=== PATIENT | female | born 1990 | race Caucasian/White ===

== ENCOUNTER 2019-08-31 08:27 | Outpatient (RCR) | payer BC, SELFPAY ==
[2019-08-05 18:34] VITALS: BP 129/82; PULSE 101
[2019-08-12 17:20] VITALS: BP 128/71; PULSE 89
[2019-08-20 15:01] VITALS: BP 140/77; PULSE 92
[2019-08-24 17:05] VITALS: BP 140/80; PULSE 81
[2019-08-27 15:04] VITALS: BP 135/83; PULSE 89
[2019-08-29 15:30] VITALS: BP 133/84; PULSE 78
--- NOTE | ~2019-08-31 | US_ITS ---
EXAMINATION: US OB limited w BPP DATE: 08/29/2019 15:06 CDT INDICATION: decelerations. TECHNIQUE: Real-time transabdominal obstetric ultrasound. FINDINGS: No prior studies for comparison. There is a single living fetus in breech presentation. The placenta is anterior without placenta pre via. cardiac activity and movement is noted with a heart rate of 147 beats per minute. A FI is normal measuring 12.8 cm. Biophysical profile: breathin of 2 movement: 2 of 2 tone: 2 of 2 Amniotic flud pocket: 2 of 2 Total score: 8 of 8 IMPRESSION: 1. Single living intrauterine in breech presentation. 2: Total biophysical profile score of 8/8. 3: Normal JOSÉ measures 12.8 cm. Reviewed, dictated and finalized at location A.
[2019-08-31 10:04] LABS: Basophils Absolute Auto 0.1 K/mm3 (0.0-0.1); Basophils Percent Auto 0.4 % (0.2-1.2); Eosinophils Absolute Auto 0.1 K/mm3 (0-0.3); Eosinophils Percent Auto 0.9 % (0-4.4); Hematocrit 35.6 % (37.0-47.0); Hemoglobin 11.6 g/dL (12.0-15.0); Immature Granulocyte Absolute 0.11 K/mm3 (0.00-0.031); Immature Granulocyte Percent A 0.9 % (0-0.5); Lymphocytes Absolute Auto 2.57 K/mm3 (0.9-3.2); Lymphocytes Percent Auto 21.2 % (18.3-44.2); Mean Corpuscular HGB Conc 32.6 g/dl (32-36); Mean Corpuscular Hemoglobin 27.7 pg (26-34); Mean Platelet Volume 10.9 fl (7.4-10.4); Monocytes Absolute Auto 0.7 K/mm3 (0.1-0.6); Monocytes Percent Auto 5.9 % (2.6-8.5); Neutrophils Absolute Auto 8.6 K/mm3 (1.3-6.7); Neutrophils Percent Auto 70.7 % (45.5-73.1); Platelet Count Result 275 k/mm3 (150-375); Red Blood Count 4.19 M/mm3 (4.2-5.4); Red Cell Distribution Width 14.2 % (11.5-14.5); White Blood Count 12.2 K/mm3 (4.5-10.0)
[2019-08-31 10:08] LABS: Add Urine Microscopic? YES; Appearance Urine Cloudy (Clear); Bacteria Urine Trace /hpf; Bilirubin Urine Negative (Negative); Blood Urine Negative (Negative); Color Urine Yellow (Yellow); Glucose Urine UA Negative (Negative); Ketones Urine Negative (Negative); Leukocyte Esterase Ur Negative LEU/UL (NEGATIVE); Mucus Urine Few /lpf; Nitrate Urine Negative (Negative); Protein Urine 1+ mg/dL (Negative); RBC Urine 0-2 /hpf (0-2); Specific Grav Ur 1.015 (1.001-1.035); Squamous Epithelial Cell Urine Many /hpf (Few); Transitional Epi Cells Urine Rare /hpf (None Seen); Urobilinogen Urine Negative mg/dL (<2.0)
[2019-08-31 10:15] LABS: Alanine Aminotransferase 13 U/L (4-35); Albumin Level 3.5 g/dL (3.5-5.1); Alkaline Phosphatase 134 U/L (38-126); Aspartate Amino Transferase 23 U/L (14-36); Bilirubin,Total 0.2 mg/dL (0.2-1.3); Blood Urea Nitrogen 3 mg/dL (7-17); Calcium 8.7 mg/dL (8.4-10.2); Carbon Dioxide 27 mmol/L (22-30); Chloride 106 mmol/L (98-107); Estimated Glomerular Filt Rate > 60; Glucose 84 mg/dL (65-105); Potassium 3.1 mmol/L (3.4-5.0); Sodium 137 mmol/L (137-145); Uric Acid 4.8 mg/dL (2.5-7.5)
[2019-08-31 10:33] LABS: Creatinine Urine 161.4 mg/dL; Total Protein Urine Random 14 mg/dL
[2019-08-31 11:23] VITALS: BP 152/86; PULSE 89
--- NOTE | 2019-08-31 11:27 | PC.NURSE ---
1117- called with lab results and to inform NST is reactive with no variables since I last spoke with her. Orders received to discharge pt home with 24 hr urine collection
--- NOTE | 2019-08-31 11:28 | PC.NURSE ---
0932- called with bp's and informed pt came in for decreased movement and has had a couple questionable variables. Order received to draw [facility] labs and montior for a couple hours.
== END 2019-09-06 07:58 | disposition home or self-care (01) ==
LOC: ANHOBOP 08:27
PROVIDERS: Visit Provider Obstetrics & Gynecology
DX: O24.419 Gestational diabetes mellitus in pregnancy, unspecified control (principal); Z3A.33 33 weeks gestation of pregnancy; Z3A.34 34 weeks gestation of pregnancy; Z3A.35 35 weeks gestation of pregnancy; O36.8130 Decreased fetal movements, third trimester, not applicable or unspecified; Z3A.36 36 weeks gestation of pregnancy
CPT/HCPCS: 36415; 59025; 76815; 76819; 80053; 81001; 82570; 84156; 84550; 85025; 87086

== ENCOUNTER 2019-09-02 16:01 | Inpatient (IN) | payer BC, SELFPAY ==
[2019-09-02] VITALS (13 sets, daily range): BP systolic 94–126; BP diastolic 62–79; PULSE 67–92; TEMP 36.3–36.6; BMI 41.1
--- NOTE | 2019-09-02 17:09 | WPDOBADMIT ---
Obstetrics - Admit Note Admission Note: Admitted for iol for Pre Eclampsia cevix closed and thick vertex by ultrasound in office 09/02/19. plan cervidil then high dose pitocin. record reviewed. No pertinent additions to the history and/or any subsequent changes in the physical findings that are not consistent with the expected course of the were found. Additions to the history and/or subsequent changes in the physical findings follow. None.
[2019-09-02 18:07] LABS: Basophils Absolute Auto 0.1 K/mm3 (0.0-0.1); Basophils Percent Auto 0.4 % (0.2-1.2); Eosinophils Absolute Auto 0.1 K/mm3 (0-0.3); Eosinophils Percent Auto 0.5 % (0-4.4); Hematocrit 33.3 % (37.0-47.0); Immature Granulocyte Percent A 0.7 % (0-0.5); Lymphocytes Absolute Auto 2.54 K/mm3 (0.9-3.2); Lymphocytes Percent Auto 18.1 % (18.3-44.2); Mean Corpuscular Hemoglobin 27.7 pg (26-34); Mean Corpuscular Volume 83.9 fl (80-100); Mean Platelet Volume 12.1 fl (7.4-10.4); Monocytes Absolute Auto 0.7 K/mm3 (0.1-0.6); Monocytes Percent Auto 5.3 % (2.6-8.5); Neutrophils Absolute Auto 10.5 K/mm3 (1.3-6.7); Platelet Count Result 259 k/mm3 (150-375); Red Blood Count 3.97 M/mm3 (4.2-5.4)
--- NOTE | 2019-09-02 18:38 | LDADM ---
This patient, Digna Velasco, was admitted to Labor/Delivery/Recovery 108 on 09/02/19 at 16:01. Plans for labor, pain management and were discussed with patient. Patient/family oriented to hospital policies and general routines including ID bracelet, bed and alarms, visiting hours, pain management, procedures, bathroom and other care routines, personal items, smoking policy, room service/diet and guest tray routines, infant security routines, and visiting hours. Patient/Family are encouraged to report perceived risks to care and to ask questions if they do not understand what they are told or what they should do. See OBIX for further documentation.
[2019-09-02] MEDS: DINOPROSTONE 10 MG VAG INSERT VAGINAL (18:50)
[2019-09-02 19:49] LABS: Glucose Point of Care 83 (65-105)
[2019-09-02 21:35] LABS: Amphetamine Screen Urine Negative (Negative); Barbiturate Screen Urine Negative (Negative); Benzodiazepines Screen Urine Negative (Negative); Cannabinoid Screen Urine Positive (Negative); Cocaine Screen Urine Negative (Negative); Methadone Screen Urine Negative (Negative); Opiate Screen Urine Negative (Negative); Phencyclidine Screen Urine Negative (Negative)
--- NOTE | 2019-09-02 22:44 | PM.OBPRVD ---
OB - Delivery Note Procedure Delivery date: 09/02/19 events: Labor Augmentation Delivery augmentation: rupture of membranes and pitocin Delivery monitor: external FHT, external uterine and internal uterine Route of delivery: Episiotomy description: Right Mediolateral Laceration description: Perineal - 2nd Degree Delivery repair: vicryl Specimen: Yes Estimated blood loss (mL): 220 Anesthesia type: Epidural Disposition: floor Baby Date of : 09/02/19 Time of : 22:12 Weeks of gestation at delivery: 39 Infant gender: Male Weight (pounds): 9 Weight (ounces): 2 presentation: vertex position: Left Occiput Anterior Placenta delivery description: Spontaneous cord vessel description: 3 Vessels score one minute: 8 score five minutes: 9
[2019-09-02] MEDS: INSULIN HUMAN NPH (*BKC) 100 UNITS/ML 50 UNITS SUB-Q (22:58)
[2019-09-02 23:41] LABS: Glucose Point of Care 86 (65-105)
[2019-09-03] VITALS (85 sets, daily range): BP systolic 85–169; BP diastolic 50–151; PULSE 59–133; TEMP 36.3–37.3; O2SAT 95–100
[2019-09-03 03:55] LABS: Glucose Point of Care 58 (65-105)
[2019-09-03 04:14] LABS: Glucose Point of Care 81 (65-105)
[2019-09-03 06:57] LABS: Rapid Plasma Reagin Non-Reactive (NonReactive)
--- NOTE | 2019-09-03 08:00 | PM.OBPNLAB ---
Pain Control Date/time seen: 09/03/19 08:00 patient doing okay cervix closed/50/-2 will start cytotec 25mcg q4 hours.
[2019-09-03] MEDS: LACTATED RINGERS 1,000 ML 125 ML IV CONT ×2 (08:08→19:32)
[2019-09-03] MEDS: OXYTOCIN 30 UNITS/NS 500 ML 30 UNITS/500 ML BAG IV CONT (08:09)
[2019-09-03] MEDS: miSOPROStol 25 MCG TABLET RECTAL ×2 (10:41→15:13)
[2019-09-03 10:48] LABS: Glucose Point of Care 77 (65-105)
[2019-09-03] MEDS: ONDANSETRON INJ 4 MG/2 ML VIAL IV PUSH ×2 (14:34→20:27)
[2019-09-03 15:27] LABS: Glucose Point of Care 70 (65-105)
--- NOTE | 2019-09-03 17:47 | WPDANESEPPF ---
Anes - Initial Pre Proc Eval Procedure: labor epidural Date/Time: 09/03/19 17:47 Surgeon: David Chandler MD Pre Op Diagnosis: labor pain Pre Op Diagnosis: induction of labor Patient Data Age: 29 Gender: F Height: 1.78 m Weight: 130 kg Last Vital Signs Temp 36.8 C 09/03/19 15:15 Pulse 82 09/03/19 17:01 BP 110/85 09/03/19 17:01 Allergies Allergy/AdvReac Type Severity Reaction Status Date / Time erythromycin base Allergy Rash Verified 08/12/19 16:30 Sulfa (Sulfonamide Allergy Rash Verified 08/12/19 16:30 Antibiotics) Home Medications Medication Instructions Recorded Confirmed Type PNV cmb#95-ferrous fumarate-FA 1 tablet PO HS 08/12/19 09/02/19 History [] aspirin [Aspirin Low Dose] 81 mg PO HS 08/12/19 09/02/19 History ergocalciferol (vitamin D2) 1,250 mcg PO 2XW 08/12/19 09/02/19 History [Vitamin D2] ferrous sulfate 325 mg PO DAILY 08/12/19 09/02/19 History insulin NPH isoph U-100 human 50 unit SUBCUT HS 08/12/19 09/02/19 History [Humulin N NPH U-100 Insulin] omeprazole magnesium [Acid Work Car Operator 20 mg PO DAILY 08/12/19 09/02/19 History (omeprazole)] venlafaxine 25 mg PO DAILY 08/12/19 09/02/19 History Laboratory Tests 09/02/19 09/02/19 09/02/19 18:02 18:02 19:05 WBC 14.0 K/mm3 H K/mm3 (4.5-10.0) RBC 3.97 M/mm3 L M/mm3 (4.2-5.4) Hgb 11.0 g/dL L g/dL (12.0-15.0) Hct 33.3 % L % (37.0-47.0) MCV 83.9 fl fl (80-100) MCH 27.7 pg pg (26-34) MCHC 33.0 g/dl g/dl (32-36) RDW 14.0 % % (11.5-14.5) Plt Count 259 k/mm3 k/mm3 (150-375) MPV 12.1 fl H fl (7.4-10.4) Immature Gran % (Auto) 0.7 % H % (0-0.5) Neut % (Auto) 75.0 % H % (45.5-73.1) Lymph % (Auto) 18.1 % L % (18.3-44.2) Prairie % (Auto) 5.3 % % (2.6-8.5) Eos % (Auto) 0.5 % % (0-4.4) Baso % (Auto) 0.4 % % (0.2-1.2) Lymph # (Auto) 2.54 K/mm3 K/mm3 (0.9-3.2) Prairie # (Auto) 0.7 K/mm3 H K/mm3 (0.1-0.6) Eos # (Auto) 0.1 K/mm3 K/mm3 (0-0.3) Baso # (Auto) 0.1 K/mm3 K/mm3 (0.0-0.1) Abs Immat Gran (auto) 0.10 K/mm3 H K/mm3 (0.00-0.031) Absolute Neuts (auto) 10.5 K/mm3 H K/mm3 (1.3-6.7) Absolute Nucleated RBC 0.0 K/mm3 K/mm3 (0.0-0.012) Nucleated RBC % 0.0 % % (0.0-0.2) POC Capillary Glucose Urine Opiates Screen Urine Methadone Screen Ur Barbiturates Screen Ur Phencyclidine Scrn Ur Amphetamine Screen U Benzodiazepines Scrn Urine Cocaine Screen U Cannabinoids Screen RPR Non-reactive (NonReactive) Blood Type A Positive Antibody Screen Negative 09/02/19 09/02/19 09/02/19 19:46 21:08 23:36 WBC RBC Hgb Hct MCV MCH MCHC RDW Plt Count MPV Immature Gran % (Auto) Neut % (Auto) Lymph % (Auto) [place] % (Auto) Eos % (Auto) Baso % (Auto) Lymph # (Auto) [place] # (Auto) Eos # (Auto) Baso # (Auto) Abs Immat Gran (auto) Absolute Neuts (auto) Absolute Nucleated RBC Nucleated RBC % POC Capillary Glucose 83 mg/dl mg/dl 86 mg/dl mg/dl (65-105) (65-105) Urine Opiates Screen Negative (Negative) Urine Methadone Screen Negative (Negative) Ur Barbiturates Screen Negative (Negative) Ur Phencyclidine Scrn Negative (Negative) Ur Amphetamine Screen Negative (Negative) U Benzodiazepines Scrn Negative (Negative) Urine Cocaine Screen Negative (Negat
[2019-09-03 20:02] LABS: Glucose Point of Care 70 (65-105)
[2019-09-04] VITALS (55 sets, daily range): BP systolic 103–150; BP diastolic 48–92; PULSE 66–103; RESP 18; TEMP 36.4–37; O2SAT 97–100
[2019-09-04 00:08] LABS: Glucose Point of Care 72 (65-105)
[2019-09-04] MEDS: LACTATED RINGERS 1,000 ML 125 ML IV CONT (02:30)
[2019-09-04 02:37] LABS: Glucose Point of Care 75 (65-105)
--- NOTE | 2019-09-04 04:35 | P.PCNOB_ITS ---
OB - Delivery Note Procedure Delivery date: 09/04/19 Procedure: events: Labor Induction Intrapartal events: Mild Preeclampsia Induction method: AROM, per misoprostol protocol and per pitocin protocol Delivery monitor: external FHT and external uterine Route of delivery: Laceration description: Perineal - 1st Degree Delivery repair: vicryl Estimated blood loss (mL): 400 Anesthesia type: Epidural Disposition: floor Complications: skin tag/wart removal [place] Baby Date of : 09/04/19 Time of : 16:00 Weeks of gestation at delivery: 37 gender: Female Weight (pounds): 6 Weight (ounces): 6 presentation: vertex position: Left Occiput Anterior Placenta delivery description: Spontaneous score one minute: 8 score five minutes: 9
--- NOTE | 2019-09-04 04:38 | PM.OBPNLAB ---
Pain Control Date/time seen: 09/04/19 04:38 AROm clear fluid 1700
[2019-09-04] MEDS: OXYTOCIN 30 UNITS/NS 500 ML 30 UNITS/500 ML BAG 125 UNITS IV CONT (04:39)
[2019-09-04] MEDS: IBUPROFEN 600 MG TABLET PO ×3 (05:20→22:39)
[2019-09-04] MEDS: WITCH HAZEL 40 PADS 1 PAD TOPICAL (05:21)
[2019-09-04] MEDS: BENZOCAINE 20% AER SPR (*SP) 56 GM CAN 1 SPRAY TOPICAL (05:21)
[2019-09-04] MEDS: DOCUSATE SODIUM 100 MG CAPSULE PO ×2 (07:47→15:53)
--- NOTE | 2019-09-04 14:43 | PCCCNOTE ---
Care Coordination. Pt. referred to CC for mom and baby having postive UDS for marijuana. Pt. reports this is first baby. She has all necessary baby care items and good family support. She plans to return home with Kirby MOODY. She plans to follow up with WIC, so provided her [place] [facility]IC contact information. Pt. denies needs for any community resource information. Spoke with Francy Askew at [facility] Hotline who took pt.'s situation as documentation only (Intake ID# [id number]).
[2019-09-04] MEDS: MULTIVIT/MIN/PREN/FOL AC/IRON TABLET 1 TAB PO (22:41)
[2019-09-05 05:05] LABS: Hematocrit 29.8 % (37.0-47.0); Hemoglobin 9.9 g/dL (12.0-15.0)
[2019-09-05] MEDS: DOCUSATE SODIUM 100 MG CAPSULE PO ×2 (07:25→16:34)
[2019-09-05] MEDS: POLYSACCHARIDE IRON COMPLEX 150 MG CAPSULE PO ×2 (07:25→16:35)
[2019-09-05] MEDS: WITCH HAZEL 40 PADS 1 PAD TOPICAL (07:25)
[2019-09-05] MEDS: IBUPROFEN 600 MG TABLET PO ×2 (07:25→16:34)
[2019-09-05] MEDS: BENZOCAINE 20% AER SPR (*SP) 56 GM CAN 1 SPRAY TOPICAL (07:25)
[2019-09-05] MEDS: PANTOPRAZOLE 40 MG TABLET PO (07:26)
[2019-09-05] MEDS: VENLAFAXINE HCL 25 MG TABLET PO (07:26)
[2019-09-05 08:00] VITALS: BP 124/74; PULSE 70; RESP 18; TEMP 36.8
--- NOTE | 2019-09-05 09:35 | WPDANLDPN2 ---
Anes-Prog Note L&D Date/Time: 09/05/19 09:35 Comfortable throughout: labor and delivery Neuraxial method: epidural Epidural/Spinal procedure site: clean & non-tender Neuro status: Neuro function grossly intact. Cardiovascular status: normal Respiratory status: normal Airway patency: baseline Mental status: baseline Post-Op hydration status: normal Vital Signs: Last Vital Signs Temp 36.8 C 09/05/19 08:00 Pulse 70 09/05/19 08:00 Resp 18 09/05/19 08:00 BP 124/74 09/05/19 08:00 Pulse Ox 99 09/04/19 19:00 Post-procedural complaints: none Patient feedback: Patient satisfied with anesthetic care.
[2019-09-05 19:30] VITALS: BP 145/83; PULSE 78; RESP 16; TEMP 37.1
[2019-09-06 07:31] VITALS: BP 151/84; PULSE 73; RESP 16; TEMP 37.1
[2019-09-06] MEDS: DOCUSATE SODIUM 100 MG CAPSULE PO (08:49)
[2019-09-06] MEDS: POLYSACCHARIDE IRON COMPLEX 150 MG CAPSULE PO (08:49)
[2019-09-06] MEDS: PANTOPRAZOLE 40 MG TABLET PO (08:50)
[2019-09-06] MEDS: VENLAFAXINE HCL 25 MG TABLET PO (08:50)
[2019-09-06] MEDS: IBUPROFEN 600 MG TABLET PO (08:50)
--- NOTE | 2019-09-06 09:23 | PM.OBPNVD ---
OB - PN: Subj Subjective Date/time seen: 09/06/19 09:23 Interval history: no PIH sx Patient comments: no complaints and pain well controlled [place] baby status: doing well feeding status: exclusively bottle feeding OB - PN: Obj Data Labs CBC & Chem 7: 09/05/19 04:10 OB - PN A/P Plan day: 2 Plan: routine care, discharge home and follow up 6 weeks Comments: visit at [facility] to recheck BP with follow up Plans loestrin 24 for bc Time Spent With Patient Time: Total time spent is greater than 50% in coordination of care (as documented) at patient's floor/unit and/or counseling patient: Exam : Bimanual exam- vagina & uterus: other (Uterus firm, nt @U)
--- NOTE | 2019-09-06 10:25 | PC.NURSE ---
Patient viewed the discharge video Mother & Baby Care, The First Two Weeks . Patient was given the opportunity and encouraged to ask questions. Patient verbalized understanding of information shared and has been given the mother/baby guide for home reference.
[2019-09-07 10:56] VITALS: BP 156/96; PULSE 68; RESP 20; TEMP 37.3; O2SAT 100
--- NOTE | 2019-09-22 14:29 | PM.OBDSVD ---
DS: Admitting Diagnosis Admitting Diagnosis Admitting Diagnosis: Encounter for supervision of normal , unspecified, third trimester OB - DS: Summary OB Procedures : NST, PIH Mgmt and Ultrasound OB Procedures Intrapartum: Spontaneous Vag Delivery OB Procedures: : None Peripartum Data Infant Delivery Method: Natural Vaginal Laceration description: Periurethral - 2nd Degree Time Spent with Patient Time attestation: Total time spent providing and/or coordinating discharge services: DS: Data Data Completed and Pending Completed studies during hospitalization: Pending at discharge 09/04/19 05:01 Cytology [PTH] Routine Surgical [PTH] Routine Discharge Plan Discharge Attending physician on discharge: David Chandler Consulting providers: Guille Agrawal Discharging Clinician: David Chandler Anticipated Discharge Date/Time: 09/06/19 09:41 Patient Disposition: Home, Self-Care Activity: may shower and pelvic rest Diet: regular Discharge Instructions: Education: Mom and Baby Guide Given to: Mother Follow-Up: Call your delivering provider's office for an appointment to be seen in: 6 Weeks Mom and baby should come to the [facility] for the follow-up appointment. Appointment Date/Time: September 07, 2019 at 11:00 am What to expect at your follow-up visit: Blood Pressure Check Physical Assessment Call [phone] if you are unable to keep your appointment time. BREAST CARE: 1. Wear a snug supportive bra. 2. For engorgement discomfort: Breast Feeding: A. Apply warm moist washcloths B. Express milk as needed to relieve engorgement C. Wear loose clothing Bottle Feeding: A. May apply ice packs 3. For sore nipples: A. Identify correct latch-on B. Apply warm moist washcloths before and after nursing C. Air dry nipples after nursing D. May apply Lansinoh cream to nipples EPISIOTOMY/PERINEAL CARE: 1. Until bleeding stops, use your dalila bottle after urinating 2. Change your pad frequently throughout the day 3. You may take sitz baths several times a day (fill your bathtub with warm water and soak for 20 minutes.) Do NOT bathe in the water 4. No tub baths until seen by your physician - You may shower ACTIVITY: 1. Rest as much as possible. 2. Do not exercise or lift anything heavier than your baby (such as laundry or other children.) 3. Avoid stairs or driving as much as possible. 4. Do not put anything into the vagina. No douching, tampons, or sexual activity until seen by physician. NOTIFY PHYSICIAN IF YOU HAVE ANY QUESTIONS OR IF ANY OF THE FOLLOWING SYMPTOMS OCCUR: 1. If your episiotomy or incision becomes red, swollen, or more painful than what you have experienced in the hospital. 2. If your vaginal bleeding becomes foul smelling. 3. If your vaginal bleeding becomes more heavy than a period or if your bleeding changes from pink to bright red. However, you may pass an occasional walnut-sized clot once or twice for the first week . 4. If you experience a sharp, shooting pain in you calves. 5. If you discover a hard, reddened area on your breast or if you experience flu-like symptoms. DIET: 1. Eat regular, well-balanced meals. 2. Drink plenty of fluids daily. If , drink to thirst. Stand Alone Forms: General Discharge Information Follow-up/Referrals: Leidy Sparks MD [Physician] - Discharge Medications: Continued ferrous sulfate 325 mg (65 mg iron) Tablet 325 mg PO DAILY RF: 0 ergocalciferol (vitamin D2) [Vitamin D2] 1,250 mcg (50,000 unit) Capsule 1,250 mcg PO 2XW RF: 0 omeprazole magnesium [Acid Fermentation Engineer (omeprazole)] 20 mg Capsule,Delayed Release(Dr/Ec) 20 mg PO DAILY RF: 0 PNV cmb#95-ferrous fumarate-FA [] 28 mg iron- 800 mcg Tablet 1 tablet PO HS RF: 0 Discontinued aspi
== END 2019-09-06 11:19 | disposition home or self-care (01) | DRG 807 ==
LOC: ANHLDR 09-04 04:42 → ANHOB2 09-04 07:21
PROVIDERS: Admitting Provider Obstetrics & Gynecology; Visit Provider Obstetrics & Gynecology
DX: O14.04 Mild to moderate pre-eclampsia, complicating childbirth (principal); Z37.0 Single live birth; Z3A.37 37 weeks gestation of pregnancy; O13.4 Gestational [pregnancy-induced] hypertension without significant proteinuria, complicating childbirth; O24.429 Gestational diabetes mellitus in childbirth, unspecified control; O69.81X0 Labor and delivery complicated by cord around neck, without compression, not applicable or unspecified; O99.284 Endocrine, nutritional and metabolic diseases complicating childbirth; E28.2 Polycystic ovarian syndrome; O99.344 Other mental disorders complicating childbirth; F41.8 Other specified anxiety disorders; O99.214 Obesity complicating childbirth; E66.01 Morbid (severe) obesity due to excess calories; O99.72 Diseases of the skin and subcutaneous tissue complicating childbirth; L91.8 Other hypertrophic disorders of the skin; O99.334 Smoking (tobacco) complicating childbirth; F17.210 Nicotine dependence, cigarettes, uncomplicated
CPT/HCPCS: 36415; 59025; 80053; 80307; 81001; 81050; 82570; 82575; 84156; 84550; 85014; 85018; 85025; 86592; 86850; 86900; 86901; 87086; 88305; 88307; A9270; J1815; J2405; J2590; J2795; J7120

== ENCOUNTER 2019-09-07 18:03 | Outpatient (CLI) | payer BC, SELFPAY ==
[2019-09-07] VITALS (10 sets, daily range): BP systolic 141–167; BP diastolic 74–94; PULSE 61–106
--- NOTE | 2019-09-07 18:03 | OBADM ---
This patient, Digna Velasco, admitted to the OB room OB Post 115 for observation. Patient/family oriented to hospital policies and general routines including ID bracelet, bed and alarms, visiting hours, pain management, procedures, bathroom and other care routines, personal items, smoking policy, room service/diet, and visiting hours. Patient/Family are encouraged to report perceived risks to care and to ask questions if they do not understand what they are told or what they should do.
[2019-09-07 18:48] LABS: Basophils Absolute Auto 0.1 K/mm3 (0.0-0.1); Basophils Percent Auto 0.6 % (0.2-1.2); Eosinophils Absolute Auto 0.4 K/mm3 (0-0.3); Eosinophils Percent Auto 3.2 % (0-4.4); Hematocrit 31.9 % (37.0-47.0); Hemoglobin 10.5 g/dL (12.0-15.0); Immature Granulocyte Absolute 0.06 K/mm3 (0.00-0.031); Immature Granulocyte Percent A 0.6 % (0-0.5); Lymphocytes Absolute Auto 2.46 K/mm3 (0.9-3.2); Lymphocytes Percent Auto 22.7 % (18.3-44.2); Mean Corpuscular HGB Conc 32.9 g/dl (32-36); Mean Corpuscular Hemoglobin 27.8 pg (26-34); Mean Corpuscular Volume 84.4 fl (80-100); Mean Platelet Volume 10.7 fl (7.4-10.4); Monocytes Absolute Auto 0.7 K/mm3 (0.1-0.6); Monocytes Percent Auto 6.5 % (2.6-8.5); Neutrophils Absolute Auto 7.2 K/mm3 (1.3-6.7); Neutrophils Percent Auto 66.4 % (45.5-73.1); Platelet Count Result 321 k/mm3 (150-375); Red Blood Count 3.78 M/mm3 (4.2-5.4); Red Cell Distribution Width 13.8 % (11.5-14.5); White Blood Count 10.9 K/mm3 (4.5-10.0)
[2019-09-07 19:08] LABS: Alanine Aminotransferase 14 U/L (4-35); Albumin Level 3.4 g/dL (3.5-5.1); Alkaline Phosphatase 119 U/L (38-126); Aspartate Amino Transferase 27 U/L (14-36); Bilirubin,Total 0.3 mg/dL (0.2-1.3); Blood Urea Nitrogen 5 mg/dL (7-17); Calcium 8.5 mg/dL (8.4-10.2); Carbon Dioxide 26 mmol/L (22-30); Chloride 106 mmol/L (98-107); Estimated Glomerular Filt Rate > 60; Glucose 98 mg/dL (65-105); Potassium 2.8 mmol/L (3.4-5.0); Sodium 137 mmol/L (137-145); Uric Acid 5.7 mg/dL (2.5-7.5)
--- NOTE | 2019-09-07 19:20 | PC.NURSE ---
Updated Dr. Sparks of patient VS and maternal assessment. Notified Dr. Sparks of lab results, including Potassium of 2.8. Orders received.
[2019-09-07] MEDS: LABETALOL HCL 100 MG TABLET PO (19:38)
[2019-09-07 20:02] LABS: Add Urine Microscopic? YES; Appearance Urine Clear (Clear); Bacteria Urine Trace /hpf; Bilirubin Urine Negative (Negative); Blood Urine 3+ (Negative); Color Urine Straw (Yellow); Glucose Urine UA Negative (Negative); Ketones Urine Trace mg/dL (Negative); Leukocyte Esterase Ur 2+ LEU/UL (NEGATIVE); Mucus Urine Rare /lpf; Nitrate Urine Negative (Negative); Protein Urine Negative (Negative); RBC Urine 21-50 /hpf (0-2); Specific Grav Ur 1.006 (1.001-1.035); Squamous Epithelial Cell Urine Few /hpf (Few); Urobilinogen Urine Negative mg/dL (<2.0); WBC Urine 16-20 /hpf (0-3)
[2019-09-07 20:10] LABS: Creatinine Urine 37.2 mg/dL; Total Protein Urine Random 32 mg/dL
--- NOTE | 2019-09-07 21:06 | PC.NURSE ---
Updated Dr. Sparks with patient BP's after labetalol medication. KCL is currently infusing. Discharge instructions given. Patient may be discharged following completion of the KCL.
[2019-09-08 00:47] VITALS: BP 131/86; PULSE 69
== END 2019-09-08 00:47 | disposition home or self-care (01) ==
LOC: ANHOBOP 18:06 → ANHOBPP 18:07
PROVIDERS: Visit Provider Obstetrics & Gynecology Gynecology
DX: O16.5 Unspecified maternal hypertension, complicating the puerperium (principal)
CPT/HCPCS: 36415; 80053; 81001; 82570; 84156; 84550; 85025; 87086; 87088; 99199; A9270; J3480

== ENCOUNTER 2019-09-08 18:56 | Outpatient (CLI) | payer BC, SELFPAY ==
[2019-09-08] VITALS (11 sets, daily range): BP systolic 124–164; BP diastolic 67–93; PULSE 53–74; BMI 37.4
--- NOTE | 2019-09-08 19:42 | PC.NURSE ---
paged dr. dwyer
--- NOTE | 2019-09-08 19:55 | PC.NURSE ---
2nd page to [address]. dwyer
--- NOTE | 2019-09-08 19:57 | PC.NURSE ---
responded to page. Report given on c/o and vital signs. Orders received.
[2019-09-08] MEDS: LABETALOL HCL 100 MG TABLET PO (20:13)
[2019-09-08 20:28] LABS: Basophils Absolute Auto 0.1 K/mm3 (0.0-0.1); Basophils Percent Auto 0.5 % (0.2-1.2); Eosinophils Absolute Auto 0.5 K/mm3 (0-0.3); Eosinophils Percent Auto 4.1 % (0-4.4); Hematocrit 33.4 % (37.0-47.0); Immature Granulocyte Absolute 0.09 K/mm3 (0.00-0.031); Immature Granulocyte Percent A 0.7 % (0-0.5); Lymphocytes Absolute Auto 4.03 K/mm3 (0.9-3.2); Lymphocytes Percent Auto 31.4 % (18.3-44.2); Mean Corpuscular HGB Conc 32.9 g/dl (32-36); Mean Corpuscular Hemoglobin 27.9 pg (26-34); Mean Corpuscular Volume 84.8 fl (80-100); Mean Platelet Volume 10.6 fl (7.4-10.4); Monocytes Absolute Auto 0.9 K/mm3 (0.1-0.6); Monocytes Percent Auto 7.1 % (2.6-8.5); Neutrophils Absolute Auto 7.2 K/mm3 (1.3-6.7); Neutrophils Percent Auto 56.2 % (45.5-73.1); Platelet Count Result 350 k/mm3 (150-375); Red Blood Count 3.94 M/mm3 (4.2-5.4); Red Cell Distribution Width 13.7 % (11.5-14.5); White Blood Count 12.9 K/mm3 (4.5-10.0)
[2019-09-08 20:39] LABS: Alanine Aminotransferase 15 U/L (4-35); Albumin Level 3.6 g/dL (3.5-5.1); Alkaline Phosphatase 119 U/L (38-126); Aspartate Amino Transferase 24 U/L (14-36); Bilirubin,Total 0.3 mg/dL (0.2-1.3); Blood Urea Nitrogen 5 mg/dL (7-17); Calcium 8.7 mg/dL (8.4-10.2); Carbon Dioxide 26 mmol/L (22-30); Chloride 106 mmol/L (98-107); Estimated Glomerular Filt Rate > 60; Glucose 96 mg/dL (65-105); Sodium 140 mmol/L (137-145); Uric Acid 5.5 mg/dL (2.5-7.5)
[2019-09-08 22:23] LABS: Creatinine Urine 79.4 mg/dL; Total Protein Urine Random 28 mg/dL
== END 2019-09-08 23:15 | disposition home or self-care (01) ==
LOC: ANHOBOP 19:14 → ANHOBPP 19:42
PROVIDERS: Obstetrics & Gynecology; Family Provider Obstetrics & Gynecology Gynecology; Visit Provider Obstetrics & Gynecology Gynecology
DX: O13.9 Gestational [pregnancy-induced] hypertension without significant proteinuria, unspecified trimester (principal); Z3A.00 Weeks of gestation of pregnancy not specified
CPT/HCPCS: 36415; 80053; 82570; 84156; 84550; 85025; 99199; A9270

== ENCOUNTER 2019-09-09 11:22 | Observation (INO) | payer BC, SELFPAY ==
[2019-09-09] VITALS (20 sets, daily range): BP systolic 134–168; BP diastolic 78–93; PULSE 63–73; RESP 16; TEMP 36.3–37.1; BMI 36.8
--- NOTE | ~2019-09-09 | CT_ITS ---
EXAMINATION: CT brain wo con INDICATION: Headache COMPARISON: None TECHNIQUE: Standard unenhanced head CT. The dose-length product (DLP) was 605.33 mGy-cm. The mA was a djusted according to patient size. Iterative reconstruction technique was employed. FINDINGS: There is no intracranial hemorrhage, acute infarction, or abnormal mass lesion. The ventric les are normal. There is no abnormal mass effect or midline shift. The scott-white matter differentiat ion is normal. The basal cisterns are patent. The orbits are normal. The paranasal sinuses, mastoids and calvarium are normal. IMPRESSION: 1. No acute intracranial abnormality. Reviewed, dictated and finalized at location A.
--- NOTE | 2019-09-09 11:47 | OBADM ---
This patient, Digna Velasco, admitted to the OB room 111 at 1122 for observation for headache and elevated BP . Patient/family oriented to hospital policies and general routines including ID bracelet, bed and alarms, visiting hours, pain management, procedures, bathroom and other care routines, personal items, smoking policy, room service/diet, and visiting hours. Patient/Family are encouraged to report perceived risks to care and to ask questions if they do not understand what they are told or what they should do.
[2019-09-09] MEDS: LABETALOL HCL 100 MG TABLET 200 MG PO (11:58)
--- NOTE | 2019-09-09 15:17 | PC.NURSE ---
Dr. Sparks updated on BP's, pt still rates her headache is still a 5 out of 10 after the [place] and eating. Discussed some probable muscular discomfort contributing to her headache as able to palpate a tight muscle especially on the right side of her neck going toward the back of her head. Warm blanket did feel good per pt. OK to order Flexeril along with CT brain and to use K-pad for heat.
[2019-09-09] MEDS: CYCLOBENZAPRINE HCL 10 MG TABLET PO (15:29)
--- NOTE | 2019-09-09 17:06 | PC.NURSE ---
Dr. Sparks called to check on pt and updated on BP's, CT of the brain is normal, and last time I was in the room pt's headache was down to a 3 out of 10. If pt's headache is still a 3 the next time I go into her room, pt can be discharged to home on Labetalol 300 mg PO q 8 hrs.
--- NOTE | 2019-09-09 17:41 | PC.NURSE ---
Dr. Sparks informed pt's headache is back up to a 4 out of 10. To give a [place] 10 mg now and increase her Labetalol to 300 mg with her 2000 dose.
--- NOTE | 2019-09-09 18:33 | PC.NURSE ---
Dr. Chandler returned page and informed of BP's 160's over 90's. Pt had just received [place] 10 at 1809 for continued headache that was up to a [address] Sparks had given orders to increase Labetalol to 300 mg when next dose was due at 1999. To give Labetalol 100 mg po now and to continue with Labetalol 300 mg PO at 1999.
[2019-09-09] MEDS: LABETALOL HCL 100 MG TABLET PO (18:46)
[2019-09-09] MEDS: LABETALOL HCL 100 MG TABLET 300 MG PO (20:05)
== END 2019-09-09 22:43 | disposition home or self-care (01) ==
LOC: ANHOBPP 11:27
PROVIDERS: Admitting Provider Obstetrics & Gynecology Gynecology; Visit Provider Obstetrics & Gynecology Gynecology
DX: O13.9 Gestational [pregnancy-induced] hypertension without significant proteinuria, unspecified trimester (principal); Z3A.00 Weeks of gestation of pregnancy not specified
CPT/HCPCS: 70450; A9270; G0378; G0379

== ENCOUNTER 2019-09-10 15:49 | Outpatient (CLI) | payer BC, SELFPAY ==
[2019-09-10] VITALS (32 sets, daily range): BP systolic 129–168; BP diastolic 77–96; PULSE 61–78; TEMP 36.5–36.8
--- NOTE | 2019-09-10 18:25 | PC.NURSE ---
Dr Sparks updated on BP's, Keep patient overnight and monitor BP's. Change meds to TID.
--- NOTE | 2019-09-10 18:53 | PC.NURSE ---
Addendum entered by Patti Richard RN 09/10/19 18:56: At 2154 Original Note: BP's Discussed with Dr Sparks and that patient has tried two different cuffs at home. Orders for Patient to follow up on friday in office and BP's will be re-evaluated.
[2019-09-10] MEDS: LABETALOL HCL 100 MG TABLET 300 MG PO (19:12)
--- NOTE | 2019-09-10 19:55 | PC.NURSE ---
pt states pt was on pt mobile phone while last bp was taken. bp repeated at this time while pt is relaxed w no stimulus. pt denies any new pih related symptoms.
--- NOTE | 2019-09-10 20:29 | PC.NURSE ---
Dr Sparks notified of BP's, Orders received.
[2019-09-10] MEDS: amLODIPine BESYLATE 5 MG TABLET PO (21:26)
[2019-09-10] MEDS: CYCLOBENZAPRINE HCL 10 MG TABLET PO (22:19)
[2019-09-11] VITALS (24 sets, daily range): BP systolic 107–159; BP diastolic 72–104; PULSE 62–81; RESP 16; TEMP 36.6–37.6; O2SAT 95–99; BMI 36.8; BMI 36.0
--- NOTE | 2019-09-11 06:35 | PC.NURSE ---
Pt sleeping. 600 ml urine in UA hat in bathroom.
--- NOTE | 2019-09-11 07:41 | PC.NURSE ---
Pt still sleeping. Checked BP while pt continues to sleep.
[2019-09-11] MEDS: LABETALOL HCL 100 MG TABLET 300 MG PO ×3 (09:07→18:14)
[2019-09-11] MEDS: CYCLOBENZAPRINE HCL 10 MG TABLET PO ×2 (09:13→14:55)
--- NOTE | 2019-09-11 09:58 | PM.OBPNVD ---
OB - PN: Subj Subjective Date/time seen: 09/11/19 09:58 Interval history: The patient continues with waxing and waning headache occiptal and frontal. No photophobia, not similar to her migaraines. Neck is tense as well and flexoril helps that. No other complaints. BP's have been labile all week so decided to observe overnight after adding Norvasc 5mg. OB - PN A/P Assessment and Plan (1) Preeclampsia in period: Code(s): O14.95 - Unspecified pre-eclampsia, complicating the puerperium Status: Acute Assessment and Plan: Continue Labetalol 300 mg TID and Norvasc 5 mg. Recheck PIH labs. (2) Headache: Code(s): R51 - Headache Status: Acute Assessment and Plan: Not correlating with BP's. CT of head normal. Will try IM morphine 10mg now then 4 mg q 2 as needed until headache gone. If headache persists, plan to consult hospitalist. Time Spent With Patient Time: Total time spent is greater than 50% in coordination of care (as documented) at patient's floor/unit and/or counseling patient: Exam Const: General: anxious (tearful) Resp: Effort & Inspection: normal respiratory effort : Other: fundus firm nt
[2019-09-11] MEDS: MORPHINE SULFATE 10 MG/ML AMP IM (10:00)
[2019-09-11 10:25] LABS: Hemoglobin 11.9 g/dL (12.0-15.0); Mean Corpuscular HGB Conc 33.1 g/dl (32-36); Mean Corpuscular Hemoglobin 27.9 pg (26-34); Mean Corpuscular Volume 84.5 fl (80-100); Mean Platelet Volume 10.5 fl (7.4-10.4); Platelet Count Result 411 k/mm3 (150-375); Red Blood Count 4.26 M/mm3 (4.2-5.4); Red Cell Distribution Width 13.7 % (11.5-14.5); White Blood Count 9.6 K/mm3 (4.5-10.0)
[2019-09-11 10:45] LABS: Alanine Aminotransferase 14 U/L (4-35); Albumin Level 3.8 g/dL (3.5-5.1); Alkaline Phosphatase 125 U/L (38-126); Anion Gap 9.4 mmol/L (7-16); Aspartate Amino Transferase 24 U/L (14-36); Bilirubin,Total 0.2 mg/dL (0.2-1.3); Blood Urea Nitrogen 7 mg/dL (7-17); Carbon Dioxide 27 mmol/L (22-30); Chloride 105 mmol/L (98-107); Estimated CRCL calculation 144 ml/min; Estimated Glomerular Filt Rate > 60; Glucose 99 mg/dL (65-105); Potassium 3.4 mmol/L (3.4-5.0); Sodium 138 mmol/L (137-145); Uric Acid 6.6 mg/dL (2.5-7.5)
[2019-09-11] MEDS: MORPHINE SULFATE 2 MG/ML INJ 4 MG IM ×2 (13:36→15:43)
--- NOTE | 2019-09-11 15:41 | PC.NURSE ---
Discussed pt's rating headache a 1 out of 10, Resp 16 and regular, O2 sat 97-98%. No evidence of sedation. MD does want pt to have another dose of Morphine 4 mg IM now.
--- NOTE | 2019-09-11 18:25 | PC.NURSE ---
Dr. Sparks returned page and updated on BP's. Informed pt describes her headache as 0.5 out of 10- only because she still feels some soreness. Order received to discharge pt to home and to send scripts for Norvasc and Flexeril. Pt may also use her Fioricet and Motrin for headaches.
== END 2019-09-11 19:11 | disposition home or self-care (01) ==
LOC: ANHOBOP 15:54 → ANHOBPP 15:54 → ANHOBOP 09-13 13:11
PROVIDERS: Visit Provider Obstetrics & Gynecology Gynecology
DX: O16.5 Unspecified maternal hypertension, complicating the puerperium (principal); Z3A.00 Weeks of gestation of pregnancy not specified
CPT/HCPCS: 36415; 80053; 84550; 85027; 99199; A9270; J2270